=== PATIENT | male | born 1980 | race Caucasian/White ===

== ENCOUNTER 2021-03-04 15:12 | Emergency (ER) | payer SELFPAY ==
[~2021-03-04] VITALS: Ht 175.3 cm; Wt 90.7 kg
[2021-03-04] MEDS ORDERED: MECLIZINE HCL25 MG PO (19:02)
[2021-03-04] MEDS ORDERED: LISINOPRIL10 MG PO (19:02)
== END 2021-03-04 19:29 | disposition home or self-care (01) ==
LOC: ED 15:12
DX: H81.01 Meniere's disease, right ear (principal); I10 Essential (primary) hypertension
CPT/HCPCS: 80048; 85025; 96374; 99284-25; J2405; J7030